=== PATIENT | male | born 1990 | race Caucasian/White ===

== ENCOUNTER 2017-03-03 17:18 | Emergency (ER) | payer OTHER ==
[~2017-03-03] VITALS: Ht 185.4 cm; Wt 92.4 kg
[2017-03-03 17:53] LABS: HEMATOCRIT 42.6 % (38.0-50.0); MCH 29.2 PG (29.0-34.0); MCHC 35.2 G/DL (30.0-36.0); MCV 82.9 FL (86-99); MEAN PLAT.VOLUME 12.9 uM^3 (9.0-12.4); PLATELET COUNT 174 K/uL (156-360); RBC DIS.WIDTH-CV 11.6 % (11.8-14.6); RBC DIS.WIDTH-SD 35.1 % (39-53); RED BLOOD COUNT 5.14 M/uL (4.00-5.50)
[2017-03-03 18:05] LABS: CHLORIDE 99 mEq/L (99-109); POTASSIUM 3.9 mEq/L (3.7-5.4); SODIUM 134 mEq/L (136-147)
[2017-03-03 18:08] LABS: ANION GAP 13 MEQ/L (2-14)
[2017-03-03 18:10] LABS: GLUCOSE 452 mg/dL (70-99)
[2017-03-03 18:11] LABS: GFR ESTIMATE (CALCULATED) > 59 mL/min/
[2017-03-03 18:13] LABS: TROP-I INTERPRETATION NEGATIVE; TROPONIN-I < 0.01 ng/mL (0.0-0.30)
[2017-03-03 18:15] LABS: UREA NITROGEN (BUN) 11 mg/dL (9-23)
[2017-03-03 18:47] LABS: BASE EXCESS 1.3 mEq/L (-3 to +3); CARBOXY HGB 4.6 % (0-5); METHEMOGLOBIN 0.9 % (0-1.5); PCO2 36 mm Hg (35-45); PO2 83 mm Hg (80-100); pH 7.45 (7.35-7.45)
[2017-03-03 18:48] LABS: COMMENTS - BLOOD GASES A+C+; DEVICE RA; SITE RR
[2017-03-03] MEDS ORDERED: ADVIL200 MG PO (19:06)
[2017-03-03 19:41] LABS: POINT-OF-CARE METER ID UU14100415
[2017-03-03 21:13] LABS: ADD MIUA? NO; BILIRUBIN NEGATIVE; BLOOD NEGATIVE; COLOR YELLOW ((YELLOW)); GLUCOSE (STRIP) >=500; KETONES NEGATIVE; LEUKOCYTES NEGATIVE; NITRITE NEGATIVE; PROTEIN (STRIP) NEGATIVE; SPECIFIC GRAVITY 1.025 (1.000-1.030); UCUL ADDED? NO; UROBILINOGEN 0.2 MG/DL (0.2-1.0)
[2017-03-03] MEDS ORDERED: GLUCOPHAGE500 MG PO (21:57)
[2017-03-03] MEDS ORDERED: LEVAQUIN500 MG PO (21:57)
[2017-03-03 22:42] VITALS: BP 158/106
== END 2017-03-03 22:42 | disposition left against medical advice (07) ==
LOC: EME 17:18
PROVIDERS: Physician Assistant
DX: J18.9 Pneumonia, unspecified organism (principal); E11.65 Type 2 diabetes mellitus with hyperglycemia; E87.1 Hypo-osmolality and hyponatremia; J02.9 Acute pharyngitis, unspecified; R35.0 Frequency of micturition; Z82.61 Family history of arthritis; Z53.29 Procedure and treatment not carried out because of patient's decision for other reasons
CPT/HCPCS: 36600; 71020; 80048; 81003; 82010; 82803; 82948; 84484; 85027; 93005; 99281; 99285; J7030